=== PATIENT | male | born 1935 | race Caucasian/White ===

== ENCOUNTER 2018-11-11 09:57 | Day surgery (SDC) | payer OTHER ==
[~2018-11-11] VITALS: Ht 175.3 cm; Wt 96.0 kg
[~2018-11-11 09:57] MED LIST: ASCO500 PO; ASPI81CH PO; ATOR20 PO; CHLO25B PO; CHOL10002 PO; CILO100 PO; CLOP75 PO; DILT120 PO; DILT180 PO; ELIQUIS2.5 MG PO; Ecotrin PO; LISINOPRIL PO; METO50ER PO; OXYACE5T PO; PANT40 PO; PYRI100 PO; Prinivil10 MG PO; SIMVASTATIN PO; Simvastatin20 MG PO; TERA5 PO; TRAM50 PO; VITAMIN D 3 PO; VITAMIN D32000 UNI1 PO
[2018-11-11] MEDS ORDERED: Aspirin EC81 MG PO (10:26)
[2018-11-11] MEDS ORDERED: DOCU100 PO (10:28)
--- NOTE | 2018-11-11 16:55 | NUR ---
DISCHARGE PT REMAINED A&OX3 AND DENIED ANY PAIN DURING RECOVERY. PT UP TO RESTROOM WITH STEADY GAIT AND REQUIRED LITTLE HELP WITH DRESSING. L GROIN SITE CDI-NO HEMATOMA NOTED. IV DC'D WITH CANULA IN TACT. DISCHARGE PAPWERWORK GONE OVER WITH PT AND SPOUSE. PT AN SPOUSE VERBALLY STATED THE UNDERSTANDING OF THE DISCHARGE EDUCATION AND DENIED ANY QUESTIONS AT THIS TIME. PT WHEELED BY SHAY CATHERINE.
== END 2018-11-11 14:50 | disposition home or self-care (01) ==
LOC: MHTC 09:57
DX: I70.201 Unspecified atherosclerosis of native arteries of extremities, right leg (principal)
CPT/HCPCS: 37225; 37228; 37232; 75716; 75774; 85347; 99152; 99153; C1714; C1725; C1760; C1769; C1884; C1887; C1894; C2623; J1644; J2250; J3010; J7030; Q9967

== ENCOUNTER 2018-11-28 07:00 | Day surgery (SDC) | payer OTHER ==
[~2018-11-28] VITALS: Ht 175.3 cm; Wt 91.0 kg
[~2018-11-28 07:00] MED LIST changes: +Aspirin EC81 MG PO; +DOCU100 PO
--- NOTE | 2018-11-28 13:05 | NUR ---
TO RECOVERY ROOM VIA BED. RIGHT GROIN SITE SOFT NON-TENDER. DOPPLER PEDAL PULSE RIGHT FOOT. PEDAL ACCESS SITE SOFT NONTENDER.
--- NOTE | 2018-11-28 15:15 | NUR ---
DISCHARGE INSTRUCTION GIVEN TO WITH VERBAL AND WRITTEN UNDERSTANDING. PT IS ASLEEP. HEART RATE IS 40-56 BPM, ATRIAL FIB.
--- NOTE | 2018-11-28 15:34 | NUR ---
AMBULATED TO BATHROOM. GROIN SITE SOFT NONTENDER.
--- NOTE | 2018-11-28 15:35 | NUR ---
DRESSING FOR DISCHARGE. ASSISTING.
--- NOTE | 2018-11-28 15:45 | NUR ---
IV REMOVED INTACT. 2X2, COBAN AND MANUAL PRESSURE APPLIED.
--- NOTE | 2018-11-28 15:50 | NUR ---
DISCHARGED HOME VIA WHEELCHAIR. DRIVING.
== END 2018-11-28 15:49 | disposition home or self-care (01) ==
LOC: MHTC 07:00
DX: I73.9 Peripheral vascular disease, unspecified (principal); L97.519 Non-pressure chronic ulcer of other part of right foot with unspecified severity; Z79.899 Other long term (current) drug therapy; Z79.01 Long term (current) use of anticoagulants; Z79.82 Long term (current) use of aspirin
CPT/HCPCS: 36140; 37229; 37232; 75710; 75774; 76937; 93926; 99152; 99153; C1724; C1725; C1769; C1887; C1894; J1200; J1644; J2060; J2250; J3010; J7030; Q9967

== ENCOUNTER 2021-01-03 16:17 | Inpatient (IN) | payer OTHER ==
[~2021-01-03] VITALS: Ht 172.7 cm; Wt 86.2 kg
[2021-01-03 17:16] LABS: BASOPHILS ABSOLUTE AUTO 0.02 K/mm3 (0.00-0.23); BASOPHILS PERCENT AUTO 0 % (0-2); EOSINOPHILS PERCENT AUTO 0 % (0-6); Hematocrit 36.1 % (37.0-53.0); Hemoglobin 13.5 g/dL (13.5-17.5); IMMATURE GRAN ABSOLUTE AUTO 0.02 K/mm3 (0.00-0.10); IMMATURE GRAN PERCENT AUTO 0 % (0-1); LYMPHOCYTES ABSOLUTE AUTO 0.41 K/mm3 (0.84-5.20); LYMPHOCYTES PERCENT AUTO 8 % (21-46); MONOCYTES ABSOLUTE AUTO 0.36 K/mm3 (0.16-1.47); MONOCYTES PERCENT AUTO 7 % (4-13); Mean Corpuscular HGB 34.2 pg (26.0-34.0); Mean Corpuscular HGB Conc 37.4 g/dL (31.5-36.5); Mean Corpuscular Volume 91 fL (80-100); Mean Platelet Volume 9.5 fL (9.1-12.4); NEUTROPHILS ABSOLUTE AUTO 4.42 K/mm3 (1.96-9.15); NEUTROPHILS PERCENT AUTO 85 % (41-73); Platelet Count 133 K/mm3 (150-400); RDW Coefficient Variation 11.9 % (11.7-14.2); RDW Standard Deviation 40.3 fL (35.1-46.3); Red Blood Cell Count 3.95 M/mm3 (4.30-5.90); White Blood Cell Count 5.23 K/mm3 (4.00-11.30)
[2021-01-03 17:40] LABS: Alanine Aminotransfer (ALT/SGP 23 U/L (12-78); Albumin, Blood 3.3 g/dL (3.4-5.0); Alk Phos 69 U/L (50-136); Anion Gap 9 mmol/L (6-16); Aspartate Aminotrans (AST/SGOT 53 U/L (12-37); Bilirubin, Total 0.9 mg/dL (0.1-1.0); Blood Urea Nitrogen 16 mg/dL (8-24); Bun/Creatinine Ratio 14.5 (12.0-20.0); CO2, Blood 25 mmol/L (21-32); Calcium, Blood 8.2 mg/dL (8.5-10.1); Chloride, Blood 93 mmol/L (98-108); Globulin, Blood 3.4 g/dL (2.2-4.0); Glomerular Filtration Rate >60 (60-); Glucose, Blood 135 mg/dL (70-99); Potassium, Blood 3.5 mmol/L (3.5-5.5); Sodium, Blood 127 mmol/L (136-145); Total Protein, Blood 6.7 g/dL (6.4-8.2)
[2021-01-03] MEDS ORDERED: Hytrin2 MG PO (19:07)
[2021-01-03] MEDS ORDERED: DOCU100 PO (19:07)
[2021-01-03 20:28] LABS: SARS-Cov-2 (COVID-19) PCR, MMC NEGATIVE (NEGATIVE)
[2021-01-04 02:35] LABS: Anion Gap 9 mmol/L (6-16); Blood Urea Nitrogen 18 mg/dL (8-24); Bun/Creatinine Ratio 15.7 (12.0-20.0); CO2, Blood 31 mmol/L (21-32); Chloride, Blood 90 mmol/L (98-108); Creatinine, Blood 1.15 mg/dL (0.60-1.20); Glomerular Filtration Rate >60 (60-); Glucose, Blood 125 mg/dL (70-99); Potassium, Blood 3.2 mmol/L (3.5-5.5); Sodium, Blood 130 mmol/L (136-145)
--- NOTE | 2021-01-04 04:32 | NUR ---
SHIFT SUMMARY NEW PT ADMITTED FOR NEW ONSET OF CHF. WHEEZING THROUGHOUT. PT ON 2L NC SATS 96%. CONTINOUS SAT MONITORING. ON TELE SR/SB DURING SHIFT. SOMETIMES DROPS TO 43 WHILE SLEEPING BUT DOESNT SUSTAIN. AAOX4. ABLE TO MAKE NEEDS KNOWN. CALL LIGHT WITHIN REACH. BED ALARM ON. BED IN LOWEST POSITION. NON-SKID SOCKS ON.
[2021-01-04] MEDS ORDERED: FINA5 PO (14:53)
[2021-01-04] MEDS ORDERED: GABA300 PO (14:53)
--- NOTE | 2021-01-04 16:59 | NUR ---
ALERT. ORIENTED, BUT FORGETFUL.STANDBY FOR BSC. TELE HAS BEEN AFIB UP TO LOW 100'S. ON 2 LPM AND CONTINUOUS SAT . TROP TRENDING DOWN. WCTM
--- NOTE | 2021-01-04 17:08 | NUR ---
pt resting nursing reports he is very forgetful. will attempt to contact to review polst and AD.
--- NOTE | 2021-01-04 18:01 | NUR ---
AWARE PATIENT DID NOT GET MORNING MEDS HE STATED HE DID NOT TAKE THEM AFTER I REVIEWED THEM WITH HIM. PATIENT'S VERIFIED THEM LATE THIS AFTERNOON.
--- NOTE | 2021-01-04 18:15 | NUR ---
MORNING MEDS GIVEN LATE PATIENT REFUSED THIS AM STATING HE DOESN'T TAKE THEM. VERIFIED WITH AND B.P. MEDS GIVEN.
[2021-01-05 07:45] LABS: Bun/Creatinine Ratio 22.6 (12.0-20.0); Calcium, Blood 8.4 mg/dL (8.5-10.1); Creatinine, Blood 1.24 mg/dL (0.60-1.20); Potassium, Blood 2.6 mmol/L (3.5-5.5)
--- NOTE | 2021-01-05 08:38 | NUR ---
NOTIFIED POTASSIUM 2.6 TO ORDER POTASSIUM CHLORIDE 40 MEQ IV
--- NOTE | 2021-01-05 10:28 | NUR ---
PER PATIENT OK TO DAUGHTER, KRISTINA. UPDATED.
--- NOTE | 2021-01-05 13:18 | NUR ---
DISCUSSED WITH PATIENT ABOUT RN TALKING TO KRISTINA SHE HAS BEEN HELPING PATIENT AND S.O. AT HOME. PATIENT OK WITH CONVERSATION
--- NOTE | 2021-01-05 15:48 | NUR ---
ADVISED POTASSIUM IV WAS SLOWED DOWN AND WILL PROBABLY BE DONE IN ABOUT 1 HOUR, SO 2 HOURS FOR LAB DRAW. OK TO CALL HIM WITH RESULTS.
[2021-01-05 17:39] LABS: Bun/Creatinine Ratio 21.7 (12.0-20.0); Calcium, Blood 8.1 mg/dL (8.5-10.1); Creatinine, Blood 1.29 mg/dL (0.60-1.20); Potassium, Blood 3.2 mmol/L (3.5-5.5)
--- NOTE | 2021-01-05 17:52 | NUR ---
ALERT. ORIENTED BUT VERY FORGETFUL IS HIS S.O. DAUGHTER,KRISTINA, NOTIFIED WHEN PATIENT D'C THAT ALL 3 SHOULD HEAR D'C. IV PATENT. POTASSIUM DONE AND F/U LAB DRAWN. PLEASANT. ON OXYGEN. TELE ON . TM
--- NOTE | 2021-01-05 17:56 | NUR ---
NOTIFIED OF 3.2 POTASSIUM. GIVE POTASSIUM CL 40 MEQ P.O.
[2021-01-06 05:35] LABS: Anion Gap 5 mmol/L (6-16); Blood Urea Nitrogen 26 mg/dL (8-24); Bun/Creatinine Ratio 22.6 (12.0-20.0); CO2, Blood 35 mmol/L (21-32); Calcium, Blood 8.2 mg/dL (8.5-10.1); Chloride, Blood 90 mmol/L (98-108); Creatinine, Blood 1.15 mg/dL (0.60-1.20); Glomerular Filtration Rate >60 (60-); Glucose, Blood 95 mg/dL (70-99); Potassium, Blood 3.2 mmol/L (3.5-5.5); Sodium, Blood 130 mmol/L (136-145)
[2021-01-06] MEDS ORDERED: ALBU90OI INH (13:10)
[2021-01-06] MEDS ORDERED: FURO20 PO (13:12)
[2021-01-06] MEDS ORDERED: POTA10T PO (13:16)
--- NOTE | 2021-01-06 15:35 | NUR ---
PT ALERT ORIENTED BUT FORGETFULL AT TIMES,PT IS STANBT ASSIST WITH [facility], PT ON 2L NC SATS IN HIGH 90S PT ON TELE AFIB.PT IN BED,CALL LIGHT IN REACH WILL CONTINUE MONITOR.
--- NOTE | 2021-01-06 15:41 | NUR ---
update family on polst and advance directive. pt to DC home.
== END 2021-01-06 15:33 | disposition home or self-care (01) | DRG 291 ==
LOC: ER 16:17 → MEDS 16:18
PROVIDERS: Emergency Medicine; Family Medicine; Physician Assistant; Student in an Organized Health Care Education/Training Program; ADMIT Hospitalist
DX: I11.0 Hypertensive heart disease with heart failure (principal); I50.31 Acute diastolic (congestive) heart failure; E87.1 Hypo-osmolality and hyponatremia; I24.8 Other forms of acute ischemic heart disease; Z20.822 Contact with and (suspected) exposure to COVID-19; I48.91 Unspecified atrial fibrillation; J45.909 Unspecified asthma, uncomplicated; E83.51 Hypocalcemia; E87.6 Hypokalemia; Z87.891 Personal history of nicotine dependence; Z79.01 Long term (current) use of anticoagulants; Z98.890 Other specified postprocedural states; Z79.899 Other long term (current) drug therapy
CPT/HCPCS: 36415; 71046; 80048; 80053; 83880; 84145; 84443; 84484; 85025; 93005; 93010; 93306; 94761; 94762; 96374; 96376; 99285-25; A9270; G0378; J1940; J3480; J7050; U0004

== ENCOUNTER 2021-09-08 14:06 | Inpatient (IN) | payer OTHER ==
[~2021-09-08] VITALS: Ht 172.7 cm; Wt 90.5 kg
[~2021-09-08 14:06] MED LIST changes: +ALBU90OI INH; +FINA5 PO; +FURO20 PO; +GABA300 PO; +Hytrin2 MG PO; +POTA10T PO
[2021-09-08] MEDS ORDERED: FAMO10 PO (14:29)
[2021-09-08 15:12] LABS: BASOPHILS ABSOLUTE AUTO 0.03 K/mm3 (0.00-0.23); BASOPHILS PERCENT AUTO 1 % (0-2); EOSINOPHILS ABSOLUTE AUTO 0.13 K/mm3 (0.00-0.68); EOSINOPHILS PERCENT AUTO 2 % (0-6); Hematocrit 36.8 % (37.0-53.0); Hemoglobin 13.1 g/dL (13.5-17.5); IMMATURE GRAN ABSOLUTE AUTO 0.01 K/mm3 (0.00-0.10); IMMATURE GRAN PERCENT AUTO 0 % (0-1); LYMPHOCYTES PERCENT AUTO 30 % (21-46); MONOCYTES ABSOLUTE AUTO 0.56 K/mm3 (0.16-1.47); MONOCYTES PERCENT AUTO 9 % (4-13); Mean Corpuscular HGB 33.9 pg (26.0-34.0); Mean Corpuscular HGB Conc 35.6 g/dL (31.5-36.5); Mean Corpuscular Volume 95 fL (80-100); Mean Platelet Volume 10.2 fL (9.1-12.4); NEUTROPHILS ABSOLUTE AUTO 3.63 K/mm3 (1.96-9.15); NEUTROPHILS PERCENT AUTO 58 % (41-73); Platelet Count 185 K/mm3 (150-400); RDW Coefficient Variation 12.2 % (11.7-14.2); RDW Standard Deviation 42.8 fL (35.1-46.3); Red Blood Cell Count 3.86 M/mm3 (4.30-5.90); White Blood Cell Count 6.26 K/mm3 (4.00-11.30)
[2021-09-08 15:20] LABS: Albumin, Blood 3.5 g/dL (3.4-5.0); Albumin/Globulin Ratio 1.2 (0.8-1.8); Bilirubin, Total 0.8 mg/dL (0.1-1.0); Calcium, Blood 8.8 mg/dL (8.5-10.1); Globulin, Blood 2.9 g/dL (2.2-4.0); Magnesium, Blood 1.6 mg/dL (1.6-2.4); Potassium, Blood 3.6 mmol/L (3.5-5.5); Total Protein, Blood 6.4 g/dL (6.4-8.2)
[2021-09-08 16:42] LABS: International Normalized Ratio 1.24; Prothrombin Time Results 12.8 Sec (9.7-11.5)
[2021-09-08 17:12] LABS: Influenza A, PCR NEGATIVE (NEGATIVE); Influenza B, PCR NEGATIVE (NEGATIVE); Resp Syncytial Virus, PCR NEGATIVE (NEGATIVE); SARS-Cov-2 (COVID-19) PCR, MMC NEGATIVE (NEGATIVE)
[2021-09-09 05:31] LABS: BASOPHILS ABSOLUTE AUTO 0.01 K/mm3 (0.00-0.23); BASOPHILS PERCENT AUTO 0 % (0-2); EOSINOPHILS PERCENT AUTO 0 % (0-6); Hematocrit 36.8 % (37.0-53.0); Hemoglobin 12.9 g/dL (13.5-17.5); IMMATURE GRAN ABSOLUTE AUTO 0.06 K/mm3 (0.00-0.10); IMMATURE GRAN PERCENT AUTO 1 % (0-1); LYMPHOCYTES ABSOLUTE AUTO 0.57 K/mm3 (0.84-5.20); LYMPHOCYTES PERCENT AUTO 6 % (21-46); MONOCYTES ABSOLUTE AUTO 0.67 K/mm3 (0.16-1.47); MONOCYTES PERCENT AUTO 6 % (4-13); Mean Corpuscular HGB 33.4 pg (26.0-34.0); Mean Corpuscular HGB Conc 35.1 g/dL (31.5-36.5); Mean Corpuscular Volume 95 fL (80-100); Mean Platelet Volume 9.4 fL (9.1-12.4); NEUTROPHILS ABSOLUTE AUTO 9.12 K/mm3 (1.96-9.15); NEUTROPHILS PERCENT AUTO 87 % (41-73); Platelet Count 140 K/mm3 (150-400); RDW Coefficient Variation 12.3 % (11.7-14.2); RDW Standard Deviation 43.4 fL (35.1-46.3); Red Blood Cell Count 3.86 M/mm3 (4.30-5.90); White Blood Cell Count 10.43 K/mm3 (4.00-11.30)
--- NOTE | 2021-09-09 05:42 | NUR ---
TABLEAU ADMINISTRATOR SUMMARY POD 0 FOR EXP LAP OF ABD FOR SBO. PT HAS MIDLINE INCISION WITH KWASI DRESSING IN PLACE, NO DRAINAGE NOTED THUS FAR. PT AAOX4 AND PLEASANT. PT REPORTS MINIMAL PAIN AND DENIES NEED FOR PAIN MEDICATIONS. HAS TOLERATED SMALL SIPS OF WATER AND ICE CHIPS. HYPERTENSIVE ON ARRIVAL FROM SURGERY, NOTIFIED HOSPITALIST AND RECIEVED ORDER FOR HYDRALAZINE. SBP IMPROVED FROM 180'S DOWN TO 150'S. OTHER VSS, WILL CONTINUE TO MONITOR.
[2021-09-09 06:08] LABS: Albumin, Blood 3.2 g/dL (3.4-5.0); Albumin/Globulin Ratio 1.1 (0.8-1.8); Bilirubin, Total 0.5 mg/dL (0.1-1.0); Bun/Creatinine Ratio 18.4 (12.0-20.0); Calcium, Blood 8.4 mg/dL (8.5-10.1); Creatinine, Blood 0.81 mg/dL (0.60-1.20); Globulin, Blood 2.9 g/dL (2.2-4.0); Potassium, Blood 4.3 mmol/L (3.5-5.5); Total Protein, Blood 6.1 g/dL (6.4-8.2)
--- NOTE | 2021-09-09 17:44 | NUR ---
SHIFT SUMMARY POD 1 EX LAP c LYSIS OF ADHESION, A/O X4, VSS, TOLERATING PO, WORKED c THARAPY TODAY, TOLERATING PO AFTER DIET ADVANCED. C/O PAIN AFTER THERAPY BUT NO PAIN PRIOR TO, MEDICATED PER EMAR WITH PATIENT REPORTING MILD RELIEF WITH 1 TABLET BUT BETTER RELIEF WITH BOTH, PAIN MED ORDERED 1-2 TABS. NO OTHER EVENTS THIS SHIFT. CALL LIGHT IN REACH, WILL CTM AND REPORT TO JANICE CATHERINE.
--- NOTE | 2021-09-10 04:11 | NUR ---
SUMMARY PT REPORTS MARKED DECREASE IN ABD PAIN. PT HAS NOT NEEDED PAIN MEDS THIS SHIFT. PT HAS WOKE UP VERY CONFUSED A FEW TIMES. PT REORIENTED EASILY. PT HAS BEEN UP TO VOID IN THE BATHROOM. NO BM'S NOTED THIS SHIFT. DRESSING INS INTACT W/ SHADOWING NOTED. PT ON TELE. CALL LIGHT IN REACH AND BED ALARM ON.
[2021-09-10 10:05] LABS: BASOPHILS ABSOLUTE AUTO 0.02 K/mm3 (0.00-0.23); BASOPHILS PERCENT AUTO 0 % (0-2); EOSINOPHILS ABSOLUTE AUTO 0.06 K/mm3 (0.00-0.68); EOSINOPHILS PERCENT AUTO 1 % (0-6); Hematocrit 35.2 % (37.0-53.0); Hemoglobin 11.9 g/dL (13.5-17.5); IMMATURE GRAN ABSOLUTE AUTO 0.02 K/mm3 (0.00-0.10); IMMATURE GRAN PERCENT AUTO 0 % (0-1); LYMPHOCYTES ABSOLUTE AUTO 1.08 K/mm3 (0.84-5.20); LYMPHOCYTES PERCENT AUTO 13 % (21-46); MONOCYTES ABSOLUTE AUTO 0.68 K/mm3 (0.16-1.47); MONOCYTES PERCENT AUTO 8 % (4-13); Mean Corpuscular HGB 32.7 pg (26.0-34.0); Mean Corpuscular HGB Conc 33.8 g/dL (31.5-36.5); Mean Corpuscular Volume 97 fL (80-100); Mean Platelet Volume 10.2 fL (9.1-12.4); NEUTROPHILS PERCENT AUTO 77 % (41-73); Platelet Count 151 K/mm3 (150-400); RDW Coefficient Variation 12.3 % (11.7-14.2); Red Blood Cell Count 3.64 M/mm3 (4.30-5.90); White Blood Cell Count 8.06 K/mm3 (4.00-11.30)
[2021-09-10 10:21] LABS: Bun/Creatinine Ratio 16.1 (12.0-20.0); Calcium, Blood 8.4 mg/dL (8.5-10.1); Creatinine, Blood 0.93 mg/dL (0.60-1.20); Potassium, Blood 3.5 mmol/L (3.5-5.5)
--- NOTE | 2021-09-10 19:15 | NUR ---
SHIFT SUMMARY POD 2 EX LAP WITH LYSIS OF ADHESION INVOLVING THE SMALL BOWEL, A/O X4, VSS, TOLERATING PO, SBA TO BATHROOM, DENIES PAIN BUT REPORTS FEELING SORE AND A SMALL INCREASE IN DISCOMFORT AFTER DINNER. DIET ADVANCED TO REGULAR. NO ACUTE EVENTS THSI SHIFT, CALL LIGHT IN REACH, REPORT GIVEN TO JANICE CATHERINE.
--- NOTE | 2021-09-11 04:40 | NUR ---
SUMMARY PT HAD NO ISSUES THIS SHIFT. PT DENIES ABD PAIN OR N/V. PT HAS BEEN UP AND VOIDING IN THE BATHROOM. NO EPISODES OF CONFUSION THIS SHIFT. PT HAS SLEPT WELL T/OUT SHIFT. PT CURRENTLY SLEEPING IN NO DISTRESS. CALL LIGHT IN REACH.
[2021-09-11 05:15] LABS: BASOPHILS ABSOLUTE AUTO 0.03 K/mm3 (0.00-0.23); BASOPHILS PERCENT AUTO 0 % (0-2); EOSINOPHILS PERCENT AUTO 3 % (0-6); Hematocrit 33.7 % (37.0-53.0); Hemoglobin 11.9 g/dL (13.5-17.5); IMMATURE GRAN ABSOLUTE AUTO 0.01 K/mm3 (0.00-0.10); IMMATURE GRAN PERCENT AUTO 0 % (0-1); LYMPHOCYTES ABSOLUTE AUTO 1.35 K/mm3 (0.84-5.20); LYMPHOCYTES PERCENT AUTO 20 % (21-46); MONOCYTES ABSOLUTE AUTO 0.65 K/mm3 (0.16-1.47); MONOCYTES PERCENT AUTO 10 % (4-13); Mean Corpuscular HGB Conc 35.3 g/dL (31.5-36.5); Mean Corpuscular Volume 93 fL (80-100); Mean Platelet Volume 9.5 fL (9.1-12.4); NEUTROPHILS ABSOLUTE AUTO 4.55 K/mm3 (1.96-9.15); NEUTROPHILS PERCENT AUTO 67 % (41-73); Platelet Count 142 K/mm3 (150-400); RDW Coefficient Variation 11.9 % (11.7-14.2); RDW Standard Deviation 41.4 fL (35.1-46.3); Red Blood Cell Count 3.61 M/mm3 (4.30-5.90); White Blood Cell Count 6.79 K/mm3 (4.00-11.30)
[2021-09-11 05:39] LABS: Bun/Creatinine Ratio 15.7 (12.0-20.0); Calcium, Blood 8.7 mg/dL (8.5-10.1); Creatinine, Blood 0.83 mg/dL (0.60-1.20); Potassium, Blood 3.6 mmol/L (3.5-5.5)
[2021-09-11] MEDS ORDERED: Acetaminophen650 M1 PO (11:46)
[2021-09-11] MEDS ORDERED: DOCU100 PO (11:47)
[2021-09-11] MEDS ORDERED: Norco 5-325 Ta1 EACH PO (11:49)
[2021-09-11] MEDS ORDERED: ONDA4ODT PO (11:50)
--- NOTE | 2021-09-11 12:30 | NUR ---
DISCHARGE SUMMARY PT A&OX4, VSS/RA, MIGUEL PO, VOIDING, AMB W/FWW TO BRP, UP TO CHAIR T/O SHIFT, IV DC'D. LEFT FLOOR VIA WC TO GO HOME WITH AND DAUGHTER, WITH DC INSTRUCTIONS, AND 1 NARC SCRIPT. DC INSTRUCTIONS PROVIDED. PT REP UNDERSTANDING THOSE INSTRUCTIONS.
== END 2021-09-11 12:28 | disposition home or self-care (01) | DRG 337 ==
LOC: ER 14:06 → SURS 17:17
PROVIDERS: Internal Medicine; Student in an Organized Health Care Education/Training Program; ADMIT Internal Medicine
PROC: 0DNU0ZZ Release Omentum, Open Approach (ICD-10-PCS; principal; 2021-09-09)
DX: K56.699 Other intestinal obstruction unspecified as to partial versus complete obstruction (principal); I48.91 Unspecified atrial fibrillation; Z66 Do not resuscitate; K21.9 Gastro-esophageal reflux disease without esophagitis; I10 Essential (primary) hypertension; N40.0 Benign prostatic hyperplasia without lower urinary tract symptoms; E78.5 Hyperlipidemia, unspecified; Z96.653 Presence of artificial knee joint, bilateral; Z20.822 Contact with and (suspected) exposure to COVID-19; Z98.890 Other specified postprocedural states; Z79.01 Long term (current) use of anticoagulants; Z48.89 Encounter for other specified surgical aftercare; Z87.891 Personal history of nicotine dependence; Z79.811 Long term (current) use of aromatase inhibitors; Z79.899 Other long term (current) drug therapy
CPT/HCPCS: 0241U; 36415; 71045; 74176; 80048; 80053; 83605; 83690; 83735; 83880; 84484; 85025; 85610; 85730; 86850; 86900; 86901; 94640; 94664; 94760; 96374; 96375; 97110; 97161; 97530; 99285-25; A9270; J0360; J0690; J1100; J2270; J2405; J2704; J3010; J7030; J7120